=== PATIENT | male | born 1995 | race Caucasian/White ===

== ENCOUNTER 2017-05-15 15:23 | Inpatient (IN) | payer BC, OTHER ==
[~2017-05-15] VITALS: Ht 182.9 cm; Wt 67.1 kg
[~2017-05-15 15:23] MED LIST: DICY20TA28 PO; DIPH50CA37 PO; Gabapentin PO; HYDR-3895 PO; Ibuprofen PO; METH-33 PO
[2017-05-15 16:07] VITALS: BP 115/56
--- NOTE | 2017-05-15 16:08 | NUR ---
Intake assessment; Patient is a 21 year old male, presented to [facility] to detoxify from Opiates. Patient arrived at intake at approximately 1530. He is the primary source of information. Patient is admitted under the care of Dr. Renee. Patient appears anxious with flushed face. Admitting vital signs are as follows; BP 115/56, HR 73, Spo2 97% on room air, temperature 98.2 with respirations of 18. Educated patient regarding unit protocols and policies, verbalized understanding. will continue with further assessment when patient is up on the unit.
[2017-05-15] MEDS ORDERED: CLONIDINE HCL 0.1 MG TABLET PO PRN (17:15)
[2017-05-15] MEDS ORDERED: ONDANSETRON 4 MG/2 ML VIAL IM PRN (17:15)
[2017-05-15] MEDS ORDERED: DICYCLOMINE HCL 20 MG TABLET PO PRN (17:15)
[2017-05-15] MEDS ORDERED: ACETAMINOPHEN 325 MG TABLET PO PRN (17:15)
[2017-05-15] MEDS ORDERED: ONDANSETRON ODT 4 MG TAB.RAPDIS SL PRN (17:15)
[2017-05-15] MEDS ORDERED: BUPRENORPHINE HCL 2 MG TAB.SUBL SL PRN (17:15)
[2017-05-15] MEDS ORDERED: IBUPROFEN 600 MG TABLET PO PRN (17:15)
[2017-05-15] MEDS ORDERED: diphenhydrAMINE 50 MG CAPSULE PO PRN (17:15)
[2017-05-15] MEDS ORDERED: METHOCARBAMOL 750 MG TABLET PO PRN (17:15)
[2017-05-15] MEDS ORDERED: MIRALAX 17 GM POWD.PACK PO PRN (17:15)
[2017-05-15] MEDS ORDERED: LOPERAMIDE HCL 2 MG CAPSULE PO PRN ×2 (17:15)
[2017-05-15] MEDS ORDERED: MAG HYDROX/AL HYDROX/SIMETH 30 ML LIQUID UDC PO PRN (17:15)
--- NOTE | 2017-05-15 17:27 | NUR ---
Admission note; Patient is a 21 year old male, presented to [facility] to detoxify from Opiates. Patient arrived at intake at approximately 1530. He is the primary source of information. Patient is admitted under the care of Dr. Renee to room 314. Patient appears anxious with flushed face. Admitting vital signs are as follows; BP 115/56, HR 73, Spo2 97% on room air, temperature 98.2 with respirations of 18 with current COWS of 5. Educated patient regarding unit protocols and policies, verbalized understanding. Patient provided urine for urine drug screen. Discussed substance use history. Patient started smoking Heroin when he was 15 years old and progressed to daily use when he turned 18 y/o. At this rate patient uses 2-3 grams of heroin since November 2016, last used on 05/14/17 at 2300. Patient also reported using Marijuana 1 gram on a weekly basis, last used 05/14/17 at 2300. Patient reported that he used " a line" of cocaine 2 days ago but denies dependence to specific substance. Patient denies history of seizures and NKA. Discussed medical and psychiatric history. Patient reported history of anxiety and depression and insomnia. Patient does not have primary care physician but reported that his his psychiatrist is Dr. Cortes. Patient did not bring any home medications. Patient lives with his father. Skin check done, no significant findings noted. MD notified. Safety measures in place. Will continue to monitor patient.
[2017-05-15 17:56] LABS: *AMPHETAMINE, URINE NEGATIVE (NEGATIVE); *BARBITURATE, URINE NEGATIVE (NEGATIVE); *CANNABINOID, URINE POSITIVE (NEGATIVE); *COCCAINE, URINE POSITIVE (NEGATIVE); *OPIATE, URINE POSITIVE (NEGATIVE); *PHENCYCLIDINE SCREEN,URINE NEGATIVE (NEGATIVE)
--- NOTE | 2017-05-15 18:43 | NUR ---
End of shift note; Patient is AOX4. Patient was seen and evaluated by MD. Patient was placed on PRN medications at this time. Patient is on flal precaution. All safety measures secured. Met all needs.
--- NOTE | 2017-05-15 19:12 | NUR ---
Start of shift note Received report from day shift nurse. Pt is a 21 yo male, A+Ox4, presenting to [facility] for Opiate/Cocaine dependence. Pt has NKA, is on Full code status, and on Regular diet. Pt is on Fall precautions. Pt has HX of Anxiety, Depression, and insomnia. Pt is on 4 day Subutex taper to start tomorrow. No s/s of distress noted at this time. Respirations even and unlabored. Will continue to monitor.
[2017-05-15 20:12] VITALS: BP 102/62
[2017-05-15 20:45] LABS: BASOPHILS # (AUTO) 0.1 K/uL (0.0-8.0); BASOPHILS % (AUTO) 0.8 % (0.0-2.0); EOSINOPHILS # (AUTO) 0.3 K/uL (0.0-0.7); EOSINOPHILS % (AUTO) 4.2 % (0.0-7.0); HEMATOCRIT 40.5 % (40-50); HEMOGLOBIN 13.9 G/DL (14.0-18.0); LYMPHOCYTES # (AUTO) 3.3 K/UL (0.8-4.8); LYMPHOCYTES % (AUTO) 52.2 % (20.5-51.5); MEAN CORPUSCULAR HEMOGLOBIN 30.4 UUG (27.0-31.0); MEAN CORPUSCULAR HGB CONC 34 g/dL (32.0-37.0); MEAN CORPUSCULAR VOLUME 88.6 FL (82.0-92.0); MONOCYTES # (AUTO) 0.6 K/UL (0.1-1.30); MONOCYTES % (AUTO) 9.1 % (0.0-11.0); NEUTROPHILS # (AUTO) 2.1 K/UL (1.8-8.9); NEUTROPHILS % (AUTO) 33.7 % (38.5-71.5); PLATELET COUNT (AUTO) 218 K/UL (150-450); RED BLOOD CELL COUNT(AUTO) 4.57 MIL/UL (4.7-6.1); WHITE BLOOD COUNT (AUTO) 6.4 K/UL (4.0-11.2)
[2017-05-15] MEDS ORDERED: LORAZEPAM 1 MG TABLET PO ONE (21:00)
[2017-05-15 21:01] LABS: ALANINE AMINOTRANSFERASE 22 U/L (16-63); ALKALINE PHOSPHATASE 59 U/L (50-136); ASPARTATE AMINOTRANSFERASE 16 U/L (15-37); BILIRUBIN,TOTAL 0.3 mg/dL (0.2-1.0); CARBON DIOXIDE 34 mmol/L (21-32); CHLORIDE 106 mmol/L (98-107); GLUCOSE 109 mg/dL (74-106); POTASSIUM 3.7 mmol/L (3.5-5.1); TOTAL PROTEIN, SERUM 6.6 g/dL (6.4-8.2); UREA NITROGEN, BLOOD 10 mg/dL (7-18)
[2017-05-15] MEDS: GABAPENTIN 300 MG CAPSULE PO SCH (21:18)
[2017-05-15 21:29] LABS: ETHANOL < 3 MG/DL (0-0)
[2017-05-16 00:22] VITALS: BP 113/77
[2017-05-16] MEDS: LORAZEPAM 1 MG TABLET PO PRN ×2 (01:05→08:28)
--- NOTE | 2017-05-16 01:10 | NUR ---
PRN Ativan 2mg PT c/o anxiety and agitation and requested for PRN Ativan 2mg. Medication given and tolerated well. Will reassess within 1 HR. Will continue to monitor.
--- NOTE | 2017-05-16 02:05 | NUR ---
PRN Ativan 2mg Reassessment Medication effective. Pt expresses reduction in anxiety. No s/s of ASE/distress noted at this time. Respirations even and unlabored. Will continue to monitor.
[2017-05-16 04:25] VITALS: BP 117/74
--- NOTE | 2017-05-16 07:00 | NUR ---
End of shift note Pt is a 21 yo male, A+Ox4, presenting to [facility] for Opiate/Cocaine dependence. Pt has NKA, is on Full code status, and on Regular diet. Pt is on Fall precautions. Pt has HX of Anxiety, Depression, and insomnia. Pt is on 4 day Subutex taper to start today. Pt was given PRN Ativan 2mg @0110. Pt slept for a total of 4 HRS. Last COWS: 3 @0400. No s/s of distress noted at this time. Respirations even and unlabored. Will endorse to day shift nurse.
--- NOTE | 2017-05-16 07:30 | NUR ---
Start of shift note; Received report from night nurse. Patient is a 21 year old male admitted on 05/15/17 for Opiate dependence. Patient to start 4 day Subutex depending on COWS score. Patient reported history of anxiety, depression and insomnia. Patient has NKA, full code status on regular diet. Skin is intact. Patient is on fall precaution. Bed in lowest position, call light within reach. Will continue to monitor patient.
[2017-05-16 08:00] VITALS: BP 127/98
--- NOTE | 2017-05-16 08:10 | NUR ---
Subutex held; Patient's current COWS score is 7, Subutex dose held as per MD order (taper protocol). Will continue to monitor patient. Addendum: 05/16/17 at 1441 by CHAPARRITA KING LVN MD was notified.
[2017-05-16] MEDS: GABAPENTIN 300 MG CAPSULE PO SCH ×2 (08:28→20:16)
--- NOTE | 2017-05-16 08:28 | NUR ---
PRN medication; Patient appears to be agitated and increase in anxiety noted. Patient noted to be pacing back and forth in the room. BP of 127/98, HR 102. Educated patient regarding Relaxation techniques. Non pharmacological techniques ineffective. PRN Ativan 2mg PO given for agitation/anxiety as per MD order to be given with 24 hours post admission. Will closely monitor patient.
[2017-05-16] MEDS ORDERED: TUBERCULIN,PURIF.PROT.DERIV. 5 TU/0.1 ML TEST ID ONE (09:00)
[2017-05-16] MEDS ORDERED: BUPRENORPHINE HCL 2 MG TAB.SUBL SL SCH (09:00)
--- NOTE | 2017-05-16 09:28 | NUR ---
Re-assessment; Patient is calm and comfortable at this time. Patient's vital signs are within normal limits, BP 110/68, HR 72. PRN medication noted to be effective.
--- NOTE | 2017-05-16 10:29 | NUR ---
Therapist prompted client about group times. Client stated he would attend all groups today.
[2017-05-16] MEDS ORDERED: TRAZ-147 PO (10:36)
[2017-05-16 12:00] VITALS: BP 124/75
[2017-05-16] MEDS: BUPRENORPHINE HCL 2 MG TAB.SUBL SL SCH ×3 (12:01→20:17)
[2017-05-16 16:00] VITALS: BP 132/68
--- NOTE | 2017-05-16 18:23 | NUR ---
End of shift note; Patient is AOX4. Patient is a 21 year old male admitted on 05/15/17 for Opiate dependence. Patient was placed on 4 day Subutex taper, no adverse reactions noted. Patient reported history of anxiety, depression and insomnia. Patient has NKA, full code status on regular diet. Skin is intact. Patient is on fall precaution. Bed in lowest position, call light within reach. Patient remained compliant with treatment plan and medication regime. Medications were effective in reducing withdrawal symptoms. Met all needs.
[2017-05-16] MEDS: HYDROXYZINE PAMOATE 25 MG CAPSULE PO PRN (18:48)
--- NOTE | 2017-05-16 18:50 | NUR ---
PRN medication; Patient appears anxious, pacing back and forth in the Hallway. Non pharmacological relaxation techniques ineffective. PRN Vistaril 25mg PO given for anxiety. Will endorse to night nurse for re-assessment.
--- NOTE | 2017-05-16 19:30 | NUR ---
Start of shift note Received report from day shift nurse. Pt is a 21 yo male, admitted to [facility] for Opiate/Cocaine dependence on 05-15-17. Pt has NKA, is a Full code status, and on Regular diet. Pt is on Fall precautions. Pt has HX of Anxiety, Depression, and insomnia. Pt is on 4 day Subutex taper. Last COWS 8 at 1600. VSS. safety measures in place. Bed locked and in lowest position with 2 side rails up for safety. Will continue to monitor.
--- NOTE | 2017-05-16 19:50 | NUR ---
REASSESSMENT OF PATIENT Patient reassessed one hour after PRN Vistaril 25mg PO given for anxiety. Patient appears less anxious, in rec room, with no further c/o anxiety present.
[2017-05-16 20:00] VITALS: BP 115/64
[2017-05-16] MEDS: TRAZODONE 100 MG TABLET PO PRN (20:21)
--- NOTE | 2017-05-16 20:21 | NUR ---
PRN MEDICATION PATIENT RECEIVED TRAZODONE 300 MG PO FOR SLEEPLESSNESS/INSOMNIA. EFFECT PENDING
--- NOTE | 2017-05-16 21:30 | NUR ---
REASSESSMENT OF PATIENT PATIENT REASSESSED ONE HOUR AFTER PATIENT RECEIVED TRAZODONE 300 MG PO FOR SLEEPLESSNESS/INSOMNIA PATIENT RESTING COMFORTABLY IN BED. EFFECTIVENESS NOTED.
[2017-05-17] VITALS: BP 117/69
--- NOTE | 2017-05-17 | NUR ---
0000 COWS deferred for sleep
[2017-05-17 04:00] VITALS: BP 116/78
--- NOTE | 2017-05-17 04:00 | NUR ---
COWS DEFERRED FOR SLEEP
--- NOTE | 2017-05-17 06:51 | NUR ---
end of shift note Pt is a 21 yo male, admitted to [facility] for Opiate/Cocaine dependence on 05-15-17. Pt has NKA, is a Full code status, and on Regular diet. Pt is on Fall precautions. Pt has History of Anxiety, Depression, and insomnia. Pt is on 4 day Subutex taper. Vital signs at 2000 BP 115/64, P 85, R 16, SPO2 98% on RA, T 98.3 COWS 8. Trazodone 300 mg PO given for insomnia with good effect. Patient VS at 0000 BP 117/69, P 75, R 14, SPO2 98% on RA, T 97.8. COWS deferred for sleep. VS at 0400 BP 116/78, P 86, R 18, SPO2 99% on RA, T 98.6. COWS deferred for sleep. Patient slept a total of 8 hours. Intake 1105 ml output 2 voids, 1 BM. safety measures in place. Bed locked and in lowest position with 2 side rails up for safety. Report given to am nurse.
--- NOTE | 2017-05-17 07:15 | NUR ---
Start of Shift Notes: Received report from night nurse. Patient is in his room. Alert and verbally responsive. Oriented x 4. Able to make his needs known. Respirations even and unlabored. No SOB noted. Skin warm and moist to touch. Abdomen soft and non-distended. BS (+) in all 4 quadrants. No complains of N/V/D or constipation noted. Bladder non-distended. No complains of dysuria noted. Ambulatory ad alexandra with steady gait. Patient is 21 year old male admitted for heroin dependence. Prior to admission, patient was using 2-3 grams of heroin daily, 1 gram of marijuana and 1 line of cocaine. NKA. FULL CODE. Regular diet. Educated patient on the current plan of care for the day and the medication regimen. Encouraged oral fluid intake and encouraged group participation to learn new skills to prevent relapse. Will continue to monitor closely throughout the day.
--- NOTE | 2017-05-17 07:15 | NUR ---
Start of Shift Notes: Received report from night nurse. Patient is in his/her room. Alert and verbally responsive. Oriented x 4. Able to make his/her needs known. Respirations even and unlabored. No SOB noted. Skin warm and moist to touch. Abdomen soft and non-distended. BS (+) in all 4 quadrants. No complains of N/V/D or constipation noted. Bladder non-distended. No complains of dysuria noted. Ambulatory ad alexandra with steady gait. Patient is 21 year old male admitted for heroin dependence. Prior to admission, patient was using 2-3 grams of heroin daily, 1 gram of marijuana and 1 line of cocaine. NKA. FULL CODE. Regular diet. Educated patient on the current plan of care for the day and the medication regimen. Encouraged oral fluid intake and encouraged group participation to learn new skills to prevent relapse. Will continue to monitor closely throughout the day.
[2017-05-17 08:00] VITALS: BP 113/63
[2017-05-17] MEDS: GABAPENTIN 300 MG CAPSULE PO SCH ×2 (08:56→20:31)
[2017-05-17] MEDS ORDERED: BUPRENORPHINE HCL 2 MG TAB.SUBL SL SCH (09:00)
[2017-05-17 11:07] LABS: HEPATITIS B SURFACE AG Negative (Negative)
[2017-05-17 12:00] VITALS: BP 126/66
[2017-05-17] MEDS: BUPRENORPHINE HCL 2 MG TAB.SUBL SL SCH ×2 (14:03→20:31)
[2017-05-17] MEDS: HYDROXYZINE PAMOATE 25 MG CAPSULE PO PRN (14:08)
--- NOTE | 2017-05-17 14:08 | NUR ---
Vistaril 25 mg PO given: Patient complained of anxiety. VS stable. Non-pharmacological interventions provided but ineffective. Medicated patient with Vistaril 25 mg PO as ordered. Will monitor for effectiveness.
--- NOTE | 2017-05-17 15:08 | NUR ---
Re-assessment: Patient verbalize relief from Vistaril 25 mg to help in anxiety. Patient stated "I feel better now." PRN Vistaril 25 mg PO was given.
[2017-05-17 16:00] VITALS: BP 104/56
[2017-05-17] MEDS ORDERED: KETOROLAC TROMETHAMINE 30 MG INJ IM PRN (16:00)
--- NOTE | 2017-05-17 18:58 | NUR ---
End of Shift Notes: Patient continues to be on 4-day Subutex taper as ordered. No adverse reactions noted. Patient tolerating taper well. VS monitored closely. No significant abnormalities noted. Withdrawal symptoms were closely monitored. Initial COWS 7, patient presented with sneezing, anxiety, fine tremors, restlessness and myalgia. Medicated patient with Vistaril 25 mg PO at 1408 with help after 1 hour. Last COWS 4. Per patient, Subutex has been effective in reducing patient's withdrawal symptoms. Able to participate in group and activities. Compliant with care and treatment. All needs met and attended. Will continue to monitor closely.
[2017-05-17 20:00] VITALS: BP 135/75
--- NOTE | 2017-05-17 20:00 | NUR ---
Start of Shift Pt is a 21 year old male admitted for Opiate dependence, placed on 4 day Subutex taper. Pt reported using Heroin 2-3g/daily, marijuana 1g/weeks and cocaine "1 line only", one time 2 days prior to admission. PMH: anxiety, depression, insomnia. NKA, regular diet, fall precautions and full code. Upon assessment, pt reports feeling mildly anxious, reports muscle/joint aches, nose stuffy, skin flushed/clammy, respirations even/unlabored, denies n/v/d, denies SOB/chest pain, medications due. Safety measures in place, call light within reach, side rails up x2, bed locked and in low position. Will continue to monitor.
[2017-05-17] MEDS: BACLOFEN 10 MG TABLET PO SCH (20:30)
[2017-05-17] MEDS: CLONIDINE HCL 0.1 MG TABLET PO SCH (20:30)
[2017-05-17] MEDS: TRAZODONE 100 MG TABLET PO PRN (22:47)
--- NOTE | 2017-05-17 22:47 | NUR ---
PRN Administration Pt requests aid for sleep. Trazodone 300mg PRN administered. Safety measures in place, will continue to monitor.
--- NOTE | 2017-05-17 23:47 | NUR ---
PRN Reassessment Upon reassessment, pt is in bed, resting with eyes closed, respirations even/unlabored. Safety measures in place, will continue to monitor.
[2017-05-18] VITALS: BP 107/62
[2017-05-18 04:00] VITALS: BP 110/73
--- NOTE | 2017-05-18 04:00 | NUR ---
COWS deferred due to pt sleeping, to assess while pt is awake as ordered. BP 110/73, pulse 80, SpO2 100% room air, resp 17, temp 98, no pain 0/[address], will continue to monitor.
--- NOTE | 2017-05-18 07:00 | NUR ---
End of Shift Pt is a 21 year old male admitted for Opiate dependence, placed on 4 day Subutex taper. Pt reported using Heroin 2-3g/daily, marijuana 1g/weeks and cocaine "1 line only", one time 2 days prior to admission. PMH: anxiety, depression, insomnia. NKA, regular diet, fall precautions and full code. During shift, pt reported feeling mildly anxious, reported muscle/joint aches, nose stuffy, skin flushed/clammy - scheduled taper medications administered, effective in management of s/s of withdrawal, as reported per pt, CIWA 6 decreased to CIWA 4. Trazodone 300mg PRN administered for sleep, effective. Pt slept for 6 hours, intake of 1541 ml PO, voids x5 and stool x1. Safety measures in place, call light within reach, side rails up x2, bed locked and in low position. Endorsed to day shift nurse.
--- NOTE | 2017-05-18 07:01 | NUR ---
Start of Shift Notes: Received report from night nurse. Patient is in his/her room. Alert and verbally responsive. Oriented x 4. Able to make his/her needs known. Respirations even and unlabored. No SOB noted. Skin warm and moist to touch. Abdomen soft and non-distended. BS (+) in all 4 quadrants. No complains of N/V/D or constipation noted. Bladder non-distended. No complains of dysuria noted. Ambulatory ad alexandra with steady gait. Patient is 21 year old male admitted for heroin dependence. Prior to admission, patient was using 2-3 grams of heroin daily, 1 gram of marijuana and 1 line of cocaine. NKA. FULL CODE. Regular diet. Educated patient on the current plan of care for the day and the medication regimen. Encouraged oral fluid intake and encouraged group participation to learn new skills to prevent relapse. Will continue to monitor closely throughout the day. Addendum: 05/18/17 at 1037 by RON ESCUDERO LVN ERROR IN CHARTING
[2017-05-18 08:00] VITALS: BP 93/64
[2017-05-18] MEDS: BACLOFEN 10 MG TABLET PO SCH ×3 (08:46→21:24)
[2017-05-18] MEDS: GABAPENTIN 300 MG CAPSULE PO SCH ×3 (08:46→21:24)
[2017-05-18] MEDS: BUPRENORPHINE HCL 2 MG TAB.SUBL SL SCH ×3 (08:46→21:24)
[2017-05-18] MEDS: CLONIDINE HCL 0.1 MG TABLET PO SCH ×2 (09:00→21:24)
--- NOTE | 2017-05-18 09:48 | NUR ---
Clonidine 0.1mg PO not administered: Patient's blood pressure 93/64. Pulse 64. Denies any complains of headache, dizziness or lightheadedness. Clonidine 0.1mg PO held at this time.
[2017-05-18 12:00] VITALS: BP 105/65
[2017-05-18 16:00] VITALS: BP 132/80
--- NOTE | 2017-05-18 18:49 | NUR ---
End of Shift Notes: Patient continues to be on 4-day Subtuex taper as ordered. No adverse reactions. VS monitored closely. No significant abnormalities noted. Withdrawal symptoms were closely monitored. Initial COWS 4, patient presented with muscle aches, myalgia, and anxiety. Last COWS 2. Per patient, Subutex has been effective in reducing his withdrawal symptoms. Compliant with care and treatment. All needs met and attended. Will continue to monitor closely.
--- NOTE | 2017-05-18 19:12 | NUR ---
Start of shift note Received report from day shift nurse. Pt is a 21 yo male, A+Ox4, presenting to [facility] for Opiate/Cocaine dependence. Pt has NKA, is on Full code status, and on Regular diet. Pt is in Fall precautions. Pt has HX of Anxiety, depression, and insomnia. Pt is on 4 day Subutex taper, tolerated well. No s/s of distress noted at this time. Respirations even and unlabored. Will continue to monitor.
[2017-05-18 20:11] VITALS: BP 126/74
[2017-05-18] MEDS: HYDROXYZINE PAMOATE 25 MG CAPSULE PO PRN (23:01)
--- NOTE | 2017-05-18 23:02 | NUR ---
PRN Vistaril Pt c/o anxiety and requested for PRN Vistaril. Medication given and tolerated well. Will reassess within 1 HR. Will continue to monitor.
--- NOTE | 2017-05-19 00:02 | NUR ---
PRN Vistaril Reassessment Medication effective. Pt expresses reduction in anxiety. No s/s of ASE/distress noted at this time. Respirations even and unlabored. Will continue to monitor.
[2017-05-19 00:15] VITALS: BP 119/65
--- NOTE | 2017-05-19 03:54 | NUR ---
PRN Robaxin Pt c/o muscle spasms and requested for PRN Robaxin. Medication given and tolerated well. Will reassess within 1 HR. Will continue to monitor.
[2017-05-19 04:12] VITALS: BP 121/68
--- NOTE | 2017-05-19 04:50 | NUR ---
PRN Robaxin Reassessment Medication effective. Pt is resting well in bed. No s/s of ASE/distress noted at this time. Respirations even and unlabored. Will continue to monitor.
--- NOTE | 2017-05-19 07:00 | NUR ---
End of shift note Pt is a 21 yo male, A+Ox4, presenting to [facility] for Opiate/Cocaine dependence. Pt has NKA, is on Full code status, and on Regular diet. Pt is in Fall precautions. Pt has HX of Anxiety, depression, and insomnia. Pt is on 4 day Subutex taper, tolerated well. Pt was given PRN Vistaril @2302 and PRN Robaxin @0354. Pt slept for a total of 2 HRS. Last COWS: 2 @0400. No s/s of distress noted at this time. Respirations even and unlabored. Will endorse to day shift nurse.
--- NOTE | 2017-05-19 07:30 | NUR ---
START OF SHIFT Pt 21 y/o male admitted for opiate dependence. Pt received in room on bed with eyes closed resting, but easily arousable to name. Pt alert and oriented to name, place, and time. Perrla. Skin warm and slightly moist to touch. Respirations even and unlabored. Pt states feels slightly anxious this morning. It was reported that pt slept for 2 hours last night. Bed on lowest position position with side rails x2 up for safety. Call light within reach. No distress noted at this time.
[2017-05-19] MEDS: GABAPENTIN 300 MG CAPSULE PO SCH ×3 (08:21→22:31)
[2017-05-19] MEDS: BACLOFEN 10 MG TABLET PO SCH ×3 (08:21→22:31)
[2017-05-19] MEDS: CLONIDINE HCL 0.1 MG TABLET PO SCH ×2 (08:22→22:31)
[2017-05-19 08:24] VITALS: BP 106/62
[2017-05-19] MEDS ORDERED: BUPRENORPHINE HCL 2 MG TAB.SUBL SL SCH (09:00)
[2017-05-19 12:35] VITALS: BP 99/58
[2017-05-19] MEDS: HYDROXYZINE PAMOATE 25 MG CAPSULE PO PRN (14:23)
--- NOTE | 2017-05-19 14:25 | NUR ---
PRN Pt states feels anxious. Vistaril po prn per MD order given and tolerated well.
--- NOTE | 2017-05-19 15:25 | NUR ---
PRN JORGE Pt observed sitting in group activity.
[2017-05-19 17:32] VITALS: BP 130/65
--- NOTE | 2017-05-19 18:42 | NUR ---
END OF SHIFT Pt 21 y/o male admitted for opiate dependence. Pt alert and oriented to name, place, and time. Perrla. Skin warm and dry to touch. Respirations even and unlabored. Pt observed mostly in recreation room today. Pt attended group activity. Pt was seen by MD today. Pt medication compliant and tolerated well. No ASE noted. Pt is scheduled to be discharged tomorrow. Bed on lowest position with side rails x2 up for safety. Call light within reach. No distress noted at this time.
--- NOTE | 2017-05-19 19:30 | NUR ---
START OF SHIFT Pt 21 y/o male admitted for opiate dependence. Pt is A/A /O X 4.Skin warm and dry to touch. Respirations even and unlabored. Per day shift report,Pt observed mostly in recreation room today. Pt attended group activity. Pt has completed his taper and is scheduled to be discharged tomorrow.Pt is med compliant,all safety measures in place, bed lcoked in lowest position with side rails x2 up for safety. Call light within reach. No c/o pain or distress noted.Last COWS=2,will continue to monitor.
[2017-05-19] MEDS ORDERED: GABA-534 PO (19:34)
[2017-05-19] MEDS ORDERED: CLON0.1T14 PO (19:34)
[2017-05-19] MEDS ORDERED: IBUP-1955 PO (19:34)
[2017-05-19] MEDS ORDERED: DICY20TA28 PO (19:34)
[2017-05-19] MEDS ORDERED: METH-406 PO (19:34)
[2017-05-19] MEDS ORDERED: HYDR-3895 PO (19:34)
[2017-05-19 20:00] VITALS: BP 127/65
[2017-05-19] MEDS: TRAZODONE 100 MG TABLET PO PRN (22:32)
--- NOTE | 2017-05-19 22:35 | NUR ---
PRN TRAZODONE GIVEN ORDERED FOR C/O INSOMNIA PER PT REQUEST.WILL MONITOR. PT REQUESTED NOT TO BE WOKEN UP FOR V/S IF HE IS SLEEPING.
--- NOTE | 2017-05-19 23:35 | NUR ---
PRN F/U PT SEEN RESTING IN BED WITH EYES CLOSED,IN DEEP SLEEP.NO S/S OF DISTRESS NOTED.
--- NOTE | 2017-05-20 | NUR ---
V/S REFUSED/COWS DEFERRED V/S REFUSED/COWS DEFERRED DUE TO SLEEP.PT SEEN RESTING IN BED,IN DEEP SLEEP.BREATHING IS EVEN AND NON LABORED.NO S/S OF DISTRESS NOTED.WILL CONTINUE TO MONITOR.
--- NOTE | 2017-05-20 06:39 | NUR ---
END OF SHIFT Pt is 21 y/o male admitted for opiate dependence. Pt is A/A /O X 4.Skin warm and dry to touch. Respirations even and unlabored. Pt has completed his taper and is scheduled to be discharged today.PRN Trazodone was given for insomnia with good effect;pt slept 7 hrs,fluid intake was 980 mls,voided x 3 .Pt is med compliant,all safety measures in place, bed locked in lowest position with side rails x2 up for safety. Call light within reach. No c/o pain or distress noted.Last COWS=2,will continue to monitor.
--- NOTE | 2017-05-20 07:10 | NUR ---
Start of Shift Endorsement received from nightshift nurse. Pt is a 21 y/o male admitted for Heroin and Cocaine dependence. Pt has been placed on a 4 day Subutex taper. Pt has completed the taper and has been scheduled to be discharged today. PT is mildly withdrawing AEB COWS 2 at midnight. Pt reports sleeping 7 hours and feel rested and ready to be discharged. Pt reports sleeping 7 hours. Pt received PRN Trazodone. VS WNL. Full Code. PT is alert and oriented x4. Pt is in STABLE condition at this time. Remains compliant with medication and diet regimen. All needs have been met, All safety measures in place per hospital policy. Bed in lowest position, side rails up x2, call-light within reach. Will continue to monitor
[2017-05-20 08:00] VITALS: BP 115/68
[2017-05-20 08:25] VITALS: BP 115/68
[2017-05-20] MEDS: CLONIDINE HCL 0.1 MG TABLET PO SCH (08:25)
[2017-05-20] MEDS: GABAPENTIN 300 MG CAPSULE PO SCH (08:26)
[2017-05-20] MEDS: BACLOFEN 10 MG TABLET PO SCH (08:26)
--- NOTE | 2017-05-20 09:45 | NUR ---
Discharge note PT has been discharged from [facility] PT is in Stable condition, VS WNL. Denies suicidal and homicidal ideations at this time. . All documentation has been completed, paperwork signed and dated. Pt left with all of his belongings, medications and prescriptions. Pt has been discharged from [facility] on 05/20/17 at 0945. has been Notified.
== END 2017-05-20 09:40 | DRG 895 ==
LOC: SRC 15:40
PROVIDERS: ADMIT Internal Medicine; ATTEND Internal Medicine
PROC: HZ2ZZZZ Detoxification Services for Substance Abuse Treatment (ICD-10-PCS; principal; 2017-05-15)
PROC: HZ31ZZZ Individual Counseling for Substance Abuse Treatment, Behavioral (ICD-10-PCS; 2017-05-16)
PROC: HZ41ZZZ Group Counseling for Substance Abuse Treatment, Behavioral (ICD-10-PCS; 2017-05-17)
DX: F11.23 Opioid dependence with withdrawal (principal); E87.3 Alkalosis; F14.20 Cocaine dependence, uncomplicated; F12.90 Cannabis use, unspecified, uncomplicated; F17.210 Nicotine dependence, cigarettes, uncomplicated; G47.00 Insomnia, unspecified; Z91.89 Other specified personal risk factors, not elsewhere classified; Z81.1 Family history of alcohol abuse and dependence; D64.9 Anemia, unspecified; E86.0 Dehydration; R73.9 Hyperglycemia, unspecified
CPT/HCPCS: 36415; 70030-TC; 80307; 80349; 80353; 80361; 83735; 85025; 86580; 86592; 86705; 86803; 87340; 87806; G0480

== ENCOUNTER 2017-08-20 13:19 | Inpatient (IN) | payer BC, OTHER ==
[~2017-08-20] VITALS: Ht 182.9 cm; Wt 64.0 kg
[~2017-08-20 13:19] MED LIST changes: +CLON0.1T14 PO; -DIPH50CA37 PO; +GABA-534 PO; -Gabapentin PO; +IBUP-1955 PO; -Ibuprofen PO; -METH-33 PO; +METH-406 PO; +TRAZ-147 PO
--- NOTE | 2017-08-20 14:40 | NUR ---
Pre-Admission Assessment Body Stylist asked to assess pt [facility]. Pt is calm and cooperative, makes needs known. Pt A/O x4, clear thought and speech process. Full range of emotions with a congruent mood. Pt is appropriate with responses. Pt endorses a need to get medical detoxification due to abusing Heroin. Pt endorses using 2-3 grams/daily by smoking. Pt also endorses smoking marijuana daily. Had been abusing crack, but has not used it 3 weeks. VS stable, initial COWS of 4. Pt endorses NKDA, eats a regular doet and if full code. Pt endorses a PCP of Dr. Ward of [place]. Pt denies HI/SI or A/VH. Pt is appropriate for [facility] and will be admitted to the unit per Dr. Lee admit orders.
[2017-08-20] MEDS ORDERED: DICYCLOMINE HCL 20 MG TABLET PO PRN (15:00)
[2017-08-20] MEDS ORDERED: diphenhydrAMINE 50 MG CAPSULE PO PRN (15:00)
[2017-08-20] MEDS ORDERED: ONDANSETRON 4 MG/2 ML VIAL IM PRN (15:00)
[2017-08-20] MEDS ORDERED: MAG HYDROX/AL HYDROX/SIMETH 30 ML LIQUID UDC PO PRN (15:00)
[2017-08-20] MEDS ORDERED: ONDANSETRON ODT 4 MG TAB.RAPDIS SL PRN (15:00)
[2017-08-20] MEDS ORDERED: LOPERAMIDE HCL 2 MG CAPSULE PO PRN ×2 (15:00)
[2017-08-20] MEDS ORDERED: ACETAMINOPHEN 325 MG TABLET PO PRN (15:00)
[2017-08-20] MEDS ORDERED: IBUPROFEN 600 MG TABLET PO PRN (15:00)
[2017-08-20 16:29] LABS: *AMPHETAMINE, URINE NEGATIVE (NEGATIVE); *BARBITURATE, URINE NEGATIVE (NEGATIVE); *CANNABINOID, URINE POSITIVE (NEGATIVE); *COCCAINE, URINE NEGATIVE (NEGATIVE); *OPIATE, URINE POSITIVE (NEGATIVE); *PHENCYCLIDINE SCREEN,URINE NEGATIVE (NEGATIVE)
[2017-08-20] MEDS: METHOCARBAMOL 750 MG TABLET PO PRN (16:41)
[2017-08-20] MEDS: LORAZEPAM 1 MG TABLET PO PRN ×2 (16:42→21:10)
[2017-08-20] MEDS: CLONIDINE HCL 0.1 MG TABLET PO PRN (16:42)
--- NOTE | 2017-08-20 16:42 | NUR ---
ORIN Coleaxin - Bentyl - Clonidine - Ativan Pt is calm and cooperative and has good insight into withdrawal process, having been to detoxification facilities, as well as, going cold turkey himself. Pt does not want to start on Subutex and states, " I don't feel to bad, not bad enough for the Subutex." Pt complains of mild stomach cramps, mild muscle aches, chills, anxiety and states, " I am a bit grumpy, on edge." Sharepoint Consultant and pt concur to administer medication to treat pt's symptoms and hold off on any Subutex till later. Sharepoint Consultant administered medications per MD order and policy with pt tolerating well. Will continue to monitor, support and encourage according to plan of care.
--- NOTE | 2017-08-20 16:56 | NUR ---
Admission (145) Pt admitted to [facility] for Heroin detoxification, on the unit 1456, safety/skin check done with skin intact and no contraband noted. Pt has completed the admit process, to include, unit orientation to rules, regulations and guidelines. Educated on common medications, smoking cessation and the withdrawal process. Pt has completed signing all necessary paperwork and denies any further comments, questions or concerns. Pt has been to [facility] on 2 previous occasions and is familiar with the unit and the detoxification process. Pt has been to 3 RTC, the last being [facility] in [place], [place] in 08/2016. Pts longest sobriety is 11 months, in 2012. Pt lives with his dad in [place]. Pt works for the [employer] business and has since age 14. Denies any medical history, denies psychiatric history, denies surgeries. Pts initial COWS of 4, with no complaints from pt. Pt denies HI/SI or A/VH or any associated psychiatric symptoms. Pt currently socializing with peers, bright affect with congruent mood. Comfortable and open with staff. Will continue to monitor, support and encourage according to plan of care.
[2017-08-20 17:05] VITALS: BP 123/67
--- NOTE | 2017-08-20 17:56 | NUR ---
PRN Re-Assessment Pt is comfortable on the unit, social and bright. Pt endorses minor relief, stating, " I am feeling about the same, but that's good, right?" Pt believes he is starting to withdrawn and is accepting of the process. Will continue to monitor, support and encourage according to plan of care.
--- NOTE | 2017-08-20 18:55 | NUR ---
End of Shift Occasional Caregiver provided report on pt admitted to [facility] this afternoon with pt on the unit at 1456. Pt is a 22 year old male admitted for Heroin detoxification. Pt has been to [facility] on two other occasions. Pt reports NKDA, no medical history, no history of seizures and no psychiatric history. Pt denies HI/SI and A/VH. Makes needs known and is calm and cooperative. Last Cows 6. Will start Subutex taper tomorrow morning. Experiencing minor withdrawal symptoms, treated per symptom. PRN Ativan, Robaxin, Clonidine and Bentyl administered PRN. Bed in low position, wheels locked and side rails up x2. Will continue to monitor, support and encourage according to plan of care.
--- NOTE | 2017-08-20 19:30 | NUR ---
START OF SHIFT Received 22 year old male patient. Pt is alert and oriented x4. Pt noted to be anxious, agitated, and fidgety. He is scheduled to start a 4 day Subutex taper tomorrow 08/21/18. Per endorsement, he received PRN clonidine, Bentyl, Ativan and Robaxin. Breathing is even and unlabored. Safety measures in place. Will monitor.
[2017-08-20 20:00] VITALS: BP 115/60
--- NOTE | 2017-08-20 21:00 | NUR ---
RN note Trazodone one-time order Patient verbalized that he takes Trazodone [address] Valencia made aware and he ordered one-time Trazodone 300 mg PO. Carried out. Addendum: 08/20/17 at 2306 by ARIELA BATES RN Additional information: Trazodone indicated for sleep and depression
--- NOTE | 2017-08-20 21:10 | NUR ---
PRN ATIVAN Pt complains of agitation. Pt noted to be restless/agitated and continuously goes down to smoke. PRN Ativan administered as ordered. Will monitor effectiveness.
[2017-08-20] MEDS ORDERED: TRAZODONE 100 MG TABLET PO ONE (22:00)
--- NOTE | 2017-08-20 22:10 | NUR ---
PRN ATIVAN REASSESSMENT PRN medication effective. Pt noted to be more calm and less anxious. Pt reports he feels less agitated. Breathing is even and unlabored. Safety measures in place. Will continue to monitor.
--- NOTE | 2017-08-20 23:02 | NUR ---
REFUSED LABS Pt refused labs to be drawn. Explained to pt that labs will be drawn again tomorrow at 0600. Pt verbalized understanding and reported he prefers to have it done tomorrow morning.
--- NOTE | 2017-08-20 23:03 | NUR ---
ONE TIME TRAZODONE Pt with new order for one time Trazodone for sleep. Medication administered as ordered. Will monitor effectiveness.
[2017-08-21] VITALS: BP 125/65
--- NOTE | 2017-08-21 00:03 | NUR ---
TRAZODONE REASSESSMENT Medication ineffective. Pt still awake, reports he is drowsy and will try to sleep soon. Safety measures in place. Will continue to monitor.
--- NOTE | 2017-08-21 00:20 | NUR ---
NURSING NOTE Pt complains of anxiety, agitation, body aches, sweats, chills and restlessness. COWS:13. Offered pt PRN Subutex, pt refused to take mediation at this time. Pt reports he will be ready to take Subutex in an hour or two. Will monitor pt.
[2017-08-21] MEDS: LORAZEPAM 1 MG TABLET PO PRN ×3 (02:12→22:14)
--- NOTE | 2017-08-21 02:12 | NUR ---
PRN ATIVAN/SUBUTEX Pt complains of anxiety, agitation, restlessness, chills, sweats and abdominal cramps. Pt noted with red, teary eyes, and fidgety behavior. Pt noted to go down to smoke several times. COWS:14. PRN Ativan and Subutex administered as ordered. Safety measures in place. Will continue to monitor.
[2017-08-21] MEDS: BUPRENORPHINE HCL 2 MG TAB.SUBL SL PRN ×2 (02:13→10:02)
--- NOTE | 2017-08-21 03:12 | NUR ---
PRN REASSESSMENT PRN medications effective. Pt appears more calm, and less fidgety. Pt reports body aches and chills have decreased. Pt stated " I feel a lot better" COWS:8. Breathing is even and unlabored, safety measures in place. Will continue to monitor.
--- NOTE | 2017-08-21 04:00 | NUR ---
VITALS REFUSED, COWS DEFERRED 0400 vitals refused. Pt reports difficulty sleeping and prefers not to be woken up for vitals signs if asleep. COWS deferred d/t pt lying in bed with eyes closed and is sleeping. Breathing is even and unlabored, safety measures in place. Will monitor.
--- NOTE | 2017-08-21 07:20 | NUR ---
END OF SHIFT Pt is a 22 year old male patient. Pt remains alert and oriented x4. Pt had complaints of chills, sweats, anxiety, restlessness, and agitation. He went down to smoke multiple times throughout the night. At 0212 he received PRN Ativan and Subutex for agitation and COWS:14. He slept a total of 2 hrs, Intake: 1,150mL, Void: x1, BM:0, COWS:8. Breathing is even and unlabored. Safety measures in place. Endorsed to AM shift.
[2017-08-21 07:38] LABS: BASOPHILS # (AUTO) 0.1 K/uL (0.0-8.0); BASOPHILS % (AUTO) 1.1 % (0.0-2.0); EOSINOPHILS # (AUTO) 0.4 K/uL (0.0-0.7); EOSINOPHILS % (AUTO) 5.4 % (0.0-7.0); HEMATOCRIT 40.7 % (36.7-47.1); HEMOGLOBIN 13.9 g/dL (12.5-16.3); LYMPHOCYTES # (AUTO) 4.5 K/uL (20.0-40.0); LYMPHOCYTES % (AUTO) 56.3 % (20.5-51.5); MEAN CORPUSCULAR HEMOGLOBIN 30.4 uug (23.8-33.4); MEAN CORPUSCULAR HGB CONC 34 g/dL (32.5-36.3); MEAN CORPUSCULAR VOLUME 89.2 fL (73.0-96.2); MONOCYTES # (AUTO) 0.8 K/uL (2.0-10.0); MONOCYTES % (AUTO) 9.9 % (0.0-11.0); NEUTROPHILS # (AUTO) 2.2 K/uL (1.8-8.9); NEUTROPHILS % (AUTO) 27.3 % (38.5-71.5); PLATELET COUNT (AUTO) 196 K/uL (152-348); RED BLOOD CELL COUNT(AUTO) 4.57 MIL/uL (4.06-5.63); WHITE BLOOD COUNT (AUTO) 7.9 K/uL (3.6-10.2)
[2017-08-21 07:43] LABS: ETHANOL < 3 MG/DL (0-0)
--- NOTE | 2017-08-21 07:43 | NUR ---
Start of shift note; Received report from night nurse. Patient is a 22 year old male admitted on 08/20/17 for Opiate withdrawals. Patient's last COWS score is 8 per endorsement. Patient is AOX4 complaining of muscle aches, restlessness, tremors to touch. Educated patient regarding the importance of compliance to treatment and medication regime. Encouraged patient to participate in group therapy and activities. Encouraged adequate fluid and nutritional intake. All safety measures secured. Will continue to monitor patient.
[2017-08-21 07:48] LABS: ALANINE AMINOTRANSFERASE 21 U/L (16-63); ALKALINE PHOSPHATASE 63 U/L (50-136); ASPARTATE AMINOTRANSFERASE 17 U/L (15-37); BILIRUBIN,TOTAL 0.3 mg/dL (0.2-1.0); CARBON DIOXIDE 31 mmol/L (21-32); CHLORIDE 105 mmol/L (98-107); GLUCOSE 112 mg/dL (74-106); MAGNESIUM 2.1 mg/dL (1.8-2.4); POTASSIUM 4.3 mmol/L (3.5-5.1); TOTAL PROTEIN, SERUM 6.7 g/dL (6.4-8.2); UREA NITROGEN, BLOOD 13 mg/dL (7-18)
[2017-08-21 08:00] VITALS: BP 104/67
[2017-08-21] MEDS: BUPRENORPHINE HCL 2 MG TAB.SUBL SL SCH ×3 (08:38→20:59)
--- NOTE | 2017-08-21 08:40 | NUR ---
Medication held; Patient's current COWS score is 7 manifested by chills, muscle aches, stomach cramps, yawning, HR 85, patient did not qualify yet to initiate Subutex taper. Subutex held per protocol .
[2017-08-21] MEDS ORDERED: TUBERCULIN,PURIF.PROT.DERIV. 5 TU/0.1 ML TEST ID ONE (09:00)
--- NOTE | 2017-08-21 10:02 | NUR ---
PRN Medication; Patient is AOX4, complaining of muscle aches, diaphoresis, agitation, anxiety, stomach cramps, tremors to touch, unable to sit still with current COWS score of 12. PRN Subutex 4mg SL given to help reduce withdrawal symptoms. Will continue to monitor for effectiveness of medication.
--- NOTE | 2017-08-21 10:32 | NUR ---
Re-assessment; Patient is AOX4. Patient current COWS score is 10 manifested by diaphoresis, anxiety, agitation, muscle aches, tremors to touch. PRN Subutex noted to be effective.
--- NOTE | 2017-08-21 11:19 | NUR ---
PRN medication; Patient appears very anxious and agitated pacing back and forth in the hallway, unable to sit still. Redirected patient as needed. PRN Ativan 2mg PO PRN administered per MD order for agitation and s/s of withdrawals. Will continue to monitor patient for effectiveness of medication.
[2017-08-21 12:00] VITALS: BP 106/68
--- NOTE | 2017-08-21 12:19 | NUR ---
Re-assessment; Patient is AOX4, appears calm and comfortable. PRN medication noted to be effective.
[2017-08-21 13:38] LABS: BAND % (MANUAL) 4 % (0-10); BASOPHILS % (MANUAL) 1 % (0-2); EOSINOPHILS % (MANUAL) 6 % (0-8); LYMPHOCYTES % (MANUAL) 56 % (20-40); MONOCYTES % (MANUAL) 11 % (2-10); NEUTROPHILS % (MANUAL) 22 % (42-75)
[2017-08-21] MEDS: GABAPENTIN 300 MG CAPSULE PO SCH ×2 (14:34→20:59)
[2017-08-21] MEDS ORDERED: DOCUSATE SODIUM 250 MG CAPSULE PO PRN (15:15)
[2017-08-21 16:00] VITALS: BP 119/77
[2017-08-21] MEDS: HYDROXYZINE PAMOATE 25 MG CAPSULE PO PRN (18:18)
--- NOTE | 2017-08-21 18:22 | NUR ---
PRN medication; Patient is AOX4. Patient appears anxious, pacing back and forth in the room. PRN Vistaril 25mg PO given for anxiety. Will continue to monitor patient.
--- NOTE | 2017-08-21 18:33 | NUR ---
End of shift note; Patient is AOX4. Patient remained compliant with treatment plan and medication regime. Medications were effective in reducing withdrawal symptoms. Patient received PRN Ativan, and Vistaril for anxiety, noted to be effective. Patient's last COWS is 7. Patient participated in group activities and therapies. All safety measures secured. Met all needs.
--- NOTE | 2017-08-21 19:10 | NUR ---
Re-assessment; Patient appears calm and comfortable. PRN medication noted to be effective.
--- NOTE | 2017-08-21 19:30 | NUR ---
START OF SHIFT Received 22 year old male patient. Pt is alert and oriented x4. Pt noted to be anxious,fidgety, and restless. Per endorsement, he received PRN Vistaril and Ativan. He also received a new order for Seroquel for sleep. Breathing is even and unlabored. Safety measures in place. Will continue to monitor.
[2017-08-21 20:15] VITALS: BP 121/71
[2017-08-21] MEDS: QUETIAPINE FUMARATE 200 MG TABLET PO SCH (22:14)
--- NOTE | 2017-08-21 22:14 | NUR ---
PRN ATIVAN Pt complains of anxiety/restlessness. Pt noted to be agitated and seen walking back and forth from his room to the recreation room. Pt also noted to smoke multiple times. PRN Ativan administered as ordered. Will monitor effectiveness.
--- NOTE | 2017-08-21 23:14 | NUR ---
PRN REASSESSMENT PRN Ativan effective. Pt lying in bed with eyes closed noted to be asleep. Breathing is even and unlabored. Safety measures in place. Will continue to monitor.
[2017-08-22] VITALS: BP 118/66
[2017-08-22] MEDS: CLONIDINE HCL 0.1 MG TABLET PO PRN (00:56)
--- NOTE | 2017-08-22 00:56 | NUR ---
PRN CLONIDINE/VISTARIL Pt noted to be anxious, and restless and continues to go down to smoke. He complains of agitation and diaphoresis. PRN Clonidine and Vistaril administered as ordered. Safety measures in place. Will monitor effectiveness.
[2017-08-22] MEDS: HYDROXYZINE PAMOATE 25 MG CAPSULE PO PRN (00:57)
--- NOTE | 2017-08-22 01:56 | NUR ---
PRN REASSESSMENT PRN medications effective. Pt is lying in bed with eyes closed noted to be asleep. Safety measures in place. Will continue to monitor.
--- NOTE | 2017-08-22 04:00 | NUR ---
VITALS REFUSED/ COWS DEFERRED 0400 vitals refused. Pt reports difficulty sleeping and did not want to be woken up. COWS deferred. Pt lying in bed with eyes closed noted to be asleep. Breathing is even and unlabored. Safety measures in place. Will monitor.
--- NOTE | 2017-08-22 07:02 | NUR ---
END OF SHIFT Pt is a 22 year old male patient. Pt remains alert and oriented x4. Pt was noted to be anxious, restless and agitated during the shift. He went to smoke multiple times throughout the night. Seroquel was effective for him. He was able to sleep 5 hrs, Intake: 1960mL, Void: x3, BM:x1, COWS:9, CIWA:10. He received PRN Ativan, Clonidine and Vistaril. Breathing is even and unlabored. Safety measures in place. Endorsed to AM shift.
--- NOTE | 2017-08-22 07:46 | NUR ---
Start of shift note; Received report from night nurse. Patient is a 22 year old male admitted on 08/20/17 for Opiate withdrawals. Patient is AOX4 complaining of muscle aches, restlessness, tremors to touch, diaphoresis, anxiety, agitation, stomach cramps, unable to sit still, redirected as needed. Educated patient regarding the importance of compliance to treatment and medication regime. Encouraged patient to participate in group therapy and activities. Encouraged adequate fluid and nutritional intake. All safety measures secured. Will continue to monitor patient.
[2017-08-22 08:00] VITALS: BP 106/68
--- NOTE | 2017-08-22 08:01 | NUR ---
PRN medication; Patient appears very anxious, restless and agitated , unable to sit still. Patient's current COWS score is 10. PRN Ativan 2mg PO PRN given for s/s of withdrawals and agitation per MD order. Will continue to monitor for effectiveness of medication.
[2017-08-22] MEDS: GABAPENTIN 300 MG CAPSULE PO SCH ×2 (08:04→14:35)
[2017-08-22] MEDS: LORAZEPAM 1 MG TABLET PO PRN ×3 (08:04→22:54)
[2017-08-22 08:07] LABS: HEPATITIS B SURFACE AG Negative (Negative)
[2017-08-22] MEDS ORDERED: BUPRENORPHINE HCL 2 MG TAB.SUBL SL SCH (09:00)
--- NOTE | 2017-08-22 09:01 | NUR ---
Re-assessment; Patient is AOX4. Patient appears calm and comfortable at this time. PRN medication noted to be effective.
[2017-08-22 12:00] VITALS: BP 129/77
[2017-08-22] MEDS ORDERED: KETOROLAC TROMETHAMINE 30 MG INJ IM PRN (13:30)
[2017-08-22] MEDS: BUPRENORPHINE HCL 2 MG TAB.SUBL SL SCH ×2 (14:36→21:34)
--- NOTE | 2017-08-22 14:36 | NUR ---
PRN medication; Patient is very anxious and agitated, unable to sit still with current COWS score of 12. PRN Ativan 2mg PO given for s/s of withdrawals and agitation. Will continue to monitor patient.
--- NOTE | 2017-08-22 15:36 | NUR ---
Re-assessment; Patient is AOX4. Patient is calm and comfortable at this time. PRN medication is effective.
[2017-08-22 16:00] VITALS: BP 128/84
[2017-08-22] MEDS: MIRALAX 17 GM POWD.PACK PO PRN (18:12)
--- NOTE | 2017-08-22 18:14 | NUR ---
PRN medication; Patient is complaining of constipation, PRN Miralax 17 GM given to prevent further constipation. Will endorse to night nurse to monitor effectiveness.
--- NOTE | 2017-08-22 18:52 | NUR ---
End of shift note; Patient is AOX4, complaining anxiety, muscle aches, diaphoresis and constipation. . Patient remained compliant with treatment plan and medication regime. Medications were effective in reducing withdrawal symptoms. Patient participated in group activities and therapies. All safety measures secured. Met all needs.
--- NOTE | 2017-08-22 19:15 | NUR ---
Start of shift note Received report from day shift nurse. Pt is a 22 yo male, A+Ox4, presenting to [facility] for Opiate/cocaine withdrawal. Pt noted with restlessness, anxiety, and agitation. Respirations even and unlabored. Pt is on 5 day Subutex taper, tolerated well. Respirations even and unlabored. Will continue to monitor.
[2017-08-22 20:21] VITALS: BP 131/71
[2017-08-22] MEDS: QUETIAPINE FUMARATE 200 MG TABLET PO SCH (21:00)
[2017-08-22] MEDS ORDERED: GABAPENTIN 300 MG CAPSULE PO SCH (21:00)
[2017-08-22] MEDS: CLONIDINE HCL 0.1 MG TABLET PO SCH (21:33)
--- NOTE | 2017-08-22 22:54 | NUR ---
PRN Ativan 2mg and Colace Pt c/o anxiety and constipation and requested for PRN Ativan and Colace. Medications given and tolerated well. Will reassess within 1 HR. Will continue to monitor.
--- NOTE | 2017-08-22 23:50 | NUR ---
PRN Ativan 2mg and Colace Reassessment PRN Ativan effective. Pt expresses reduction in anxiety. Awaiting effectiveness of Colace. No s/s of ASE noted at this time. Respirations even and unlabored. Will continue to monitor.
[2017-08-23 00:25] VITALS: BP 127/74
[2017-08-23] MEDS: METHOCARBAMOL 750 MG TABLET PO PRN (02:30)
--- NOTE | 2017-08-23 02:30 | NUR ---
PRN Robaxin Pt c/o muscle pain 02/08 and requested for PRN Robaxin. Medication given and tolerated well. Will reassess within 1 HR. Will continue to monitor.
--- NOTE | 2017-08-23 03:28 | NUR ---
PRN Robaxin Reassessment Medication effective. Pt expresses reduction in muscle pain to 4/10. No s/s of ASE noted at this time. Respirations even and unlabored. Will continue to monitor.
[2017-08-23 04:33] VITALS: BP 125/71
--- NOTE | 2017-08-23 07:00 | NUR ---
End of shift note Pt continuously noted restlessness, anxiety, and agitation throughout shift. Pt was out of room frequently to go smoke on patio and to get food from kitchen during shift. Pt was given PRN Ativan 2mg for anxiety and Colace for c/o constipation @ 2254. Pt was also given PRN Robaxin for muscle pain @0230. Pt slept for a total of 4 HRS. Last COWS: 8 @0400. V/S WNL throughout shift. Respirations even and unlabored. Will endorse to day shift nurse.
--- NOTE | 2017-08-23 07:30 | NUR ---
START OF SHIFT Pt 22 y/o male admitted for heroin detoxification. Pt received in room on bed with eyes closed resting but easily arousable to name. Pt alert and oriented to name, place, and time. Perrla. Skin warm and moist to touch. Respirations even and unlabored. Bilateral hand tremors noted. Open empty bottles scattered throughout room. Pt appears disheveled with hair uncombed. It reported that pt slept for 4 hours last night. [place]=8 [place] [address]. Bed on lowest position with side rails x2 up for safety. Call light within reach.
[2017-08-23 08:00] VITALS: BP 120/73
[2017-08-23] MEDS: GABAPENTIN 300 MG CAPSULE PO SCH ×3 (09:04→20:47)
[2017-08-23] MEDS: CLONIDINE HCL 0.1 MG TABLET PO SCH ×2 (09:04→20:48)
[2017-08-23] MEDS: BUPRENORPHINE HCL 2 MG TAB.SUBL SL SCH ×3 (09:04→20:48)
[2017-08-23] MEDS: MIRALAX 17 GM POWD.PACK PO PRN (10:37)
--- NOTE | 2017-08-23 10:42 | NUR ---
PRN Pt states is constipated. Miralax solution mix prn per MD order given and tolerated well.
--- NOTE | 2017-08-23 10:42 | NUR ---
Therapist prompted client about group times. Client stated he would attend all groups today.
[2017-08-23] MEDS ORDERED: BISACODYL 5 MG TABLET.DR PO PRN (11:30)
[2017-08-23] MEDS ORDERED: BISACODYL 10 MG SUPP.RECT RC PRN (11:30)
--- NOTE | 2017-08-23 11:42 | NUR ---
PRN EVAL Pt states had a very small BM. Not effective. Pt states will try the dulcolax supp prn per MD order later today.
[2017-08-23 12:00] VITALS: BP 111/58
--- NOTE | 2017-08-23 13:29 | NUR ---
PRN Pt states is still constipated. Dulcolax supp prn per MD order given and tolerated well.
--- NOTE | 2017-08-23 14:29 | NUR ---
PRRadha PATEL Pt stated had a BM.
[2017-08-23] MEDS: QUETIAPINE FUMARATE 25 MG TABLET PO PRN (15:49)
--- NOTE | 2017-08-23 15:50 | NUR ---
PRN Pt agitated. Seroquel po prn per MD order given and tolerated well.
[2017-08-23 16:00] VITALS: BP 121/69
--- NOTE | 2017-08-23 16:50 | NUR ---
ORIN PATEL Pt observed in room on bed watching television.
[2017-08-23] MEDS ORDERED: SHARK LIVER OIL/PETROLAT OINT 60 GM TUBE RC ONE (18:45)
[2017-08-23] MEDS ORDERED: PHENYLEPHRINE/SHARK LIVER/CCB 1 EACH SUPP.RECT RC PRN (18:45)
--- NOTE | 2017-08-23 19:17 | NUR ---
PRN pt c/o hemorrhoids. Prep H prn per MD order given and tolerated well.
--- NOTE | 2017-08-23 19:32 | NUR ---
END OF SHIFT Pt 22 y/o admitted for heroin detoxification. Pt alert and oriented to name, place, and time. Perrla. Skin warm and moist to touch. Respirations even and unlabored. Bilateral hand tremors noted. Pt appears disheveled with hair uncombed. Dirty clothes scattered throughout the floor. Pt with periods of anxiety this morning. A few empty bottles of water scattered throughout the bedside shelf. Pt mostly observed in recreational room throughout the day. Pt attended group activity. Pt with cows=8@0800, 10 @1200, and 9@1600. Pt was seen by MD today. Pt medication compliant and tolerated well. No ASE noted. Pt is currently on 5 day Subutex taper and is on day 3. Pt was given miralax oral solution mix prn per MD order given. Pt was given Dulcolax supp prn per MD order given. Bed on lowest position with side rails x2 up for safety. Call light within reach.
--- NOTE | 2017-08-23 19:33 | NUR ---
Start of shift note Received report from day shift nurse. Pt is a 22 yo male, A+Ox4, presenting to [facility] for Opiate/cocaine withdrawal. Pt noted with anxiety, agitation, restlessness, and c/o constipation. Pt is on 5 day Subutex taper, tolerated well. Respirations even and unlabored. Will continue to monitor.
[2017-08-23] MEDS ORDERED: MAGNESIUM CITRATE 296 ML BOTTLE PO PRN (20:15)
[2017-08-23 20:31] VITALS: BP 157/74
--- NOTE | 2017-08-23 20:49 | NUR ---
PRN Magnesium Citrate Pt c/o persistent constipation and requested for Magnesium Citrate. Medication given and tolerated well. Will reassess within 1 HR. Will continue to monitor.
--- NOTE | 2017-08-23 21:45 | NUR ---
PRN Magnesium Citrate Reassessment Awaiting effectiveness of medication. No s/s of ASE noted at this time. Respirations even and unlabored. Will continue to monitor.
[2017-08-23] MEDS: QUETIAPINE FUMARATE 200 MG TABLET PO SCH (22:11)
[2017-08-24 00:07] VITALS: BP 142/78
[2017-08-24 04:22] VITALS: BP 138/77
--- NOTE | 2017-08-24 06:50 | NUR ---
End of shift note Pt continuously noted with anxiety, agitation, restlessness, and complaints of constipation. Pt was given PRN Magnesium citrate @2048 but still no BM noted. Pt was out of room frequently to get food from kitchen, go smoke on smoking patio, and interacting with other patients in recreational room. Pt slept for a total of 8 HRS. Last COWS: 8 @0400. V/S WNL during shift. Respirations even and unlabored. Will endorse to day shift nurse.
--- NOTE | 2017-08-24 07:30 | NUR ---
START OF SHIFT Pt 22 y/o male admitted for heroin detoxification. Pt received in room on bed with eyes closed resting but easily arousable to name. Pt alert and oriented to name, place, and time. Perrla. Skin warm and moist to touch. Respirations even and unlabored. Bilateral hand tremors noted. Open empty bottles scattered throughout room. Observed clothes scattered throughout the floor in room. Pt appears disheveled with hair uncombed. It reported that pt slept for 6 hours last night. Last cows=8 reported at 0400. Pt is on a 5 day subutex taper and is on day 5. Bed on lowest position with side rails x2 up for safety. Call light within reach.
[2017-08-24 08:00] VITALS: BP 106/61
[2017-08-24] MEDS ORDERED: BUPRENORPHINE HCL 2 MG TAB.SUBL SL SCH (09:00)
[2017-08-24] MEDS: GABAPENTIN 300 MG CAPSULE PO SCH ×3 (09:25→22:58)
[2017-08-24] MEDS: QUETIAPINE FUMARATE 25 MG TABLET PO PRN ×2 (09:25→14:21)
[2017-08-24] MEDS: CLONIDINE HCL 0.1 MG TABLET PO SCH ×2 (09:25→22:58)
[2017-08-24 12:00] VITALS: BP 110/64
--- NOTE | 2017-08-24 14:25 | NUR ---
PRN Pt agitated and restless. Seroquel po prn per MD order given and tolerated well.
--- NOTE | 2017-08-24 14:27 | NUR ---
PRN Pt stated had another loose stool x1. Immodium po prn per MD order given and tolerated well.
[2017-08-24] MEDS ORDERED: IBUP-1955 PO (14:58)
[2017-08-24] MEDS ORDERED: HYDR-3895 PO (14:58)
[2017-08-24] MEDS ORDERED: DICY20TA28 PO (14:58)
[2017-08-24] MEDS ORDERED: CLON0.1T14 PO (14:58)
[2017-08-24] MEDS ORDERED: METH-406 PO (14:58)
[2017-08-24] MEDS ORDERED: QUET200T PO (14:58)
[2017-08-24] MEDS ORDERED: GABA-534 PO (14:58)
--- NOTE | 2017-08-24 15:25 | NUR ---
ORIN PATEL Pt observed walking around in the hallways with other clients.
[2017-08-24] MEDS: HYDROXYZINE PAMOATE 25 MG CAPSULE PO PRN (15:30)
--- NOTE | 2017-08-24 15:31 | NUR ---
PRN Pt states feels anxious. Vistaril po prn per MD order given and tolerated well.
[2017-08-24 16:00] VITALS: BP 124/68
--- NOTE | 2017-08-24 16:31 | NUR ---
ORIN PATEL Pt observed in room on bed watching television.
--- NOTE | 2017-08-24 17:07 | NUR ---
Therapist prompted client to attend daily group session. Client responded by stating that he would attend if she was feeling well enough to go.
--- NOTE | 2017-08-24 18:32 | NUR ---
END OF SHIFT Pt 22 y/o admitted for heroin detoxification. Pt alert and oriented to name, place, and time. Perrla. Skin warm and moist to touch. Respirations even and unlabored. Bilateral hand tremors noted. Pt with periods of anxiety this morning. Pt mostly observed walking around the hallways. Pt attended group activity. Pt with cows=9@0800, 7@1200, and 5@1600. Pt was seen by MD today. Pt medication compliant and tolerated well. No ASE noted. Pt is currently on 5 day Subutex taper and is on day 4. Pt was given immodium po per MD order given. Pt was given Seroquel po prn per MD order today and Vistaril po prn per MD order. Bed on lowest position with side rails x2 up for safety. Call light within reach.
--- NOTE | 2017-08-24 19:15 | NUR ---
Start of shift note Received report from day shift nurse. Pt is a 22 yo male, A+Ox4, presenting to [facility] for Opiate/cocaine withdrawal. Pt noted with anxiety, agitation and restlessness. Pt's room is messy and disorganized. Pt has completed 4 day Subutex taper and is due for discharge tomorrow. Respirations even and unlabored. Will continue to monitor.
--- NOTE | 2017-08-24 19:57 | NUR ---
PRN Tylenol Pt noted with temp= 100.8F. PRN Tylenol given and tolerated well. Will reassess within 1 HR. Will continue to monitor.
[2017-08-24 20:01] VITALS: BP 130/71
--- NOTE | 2017-08-24 20:50 | NUR ---
PRN Tylenol Reassessment Medication effective. Pt's temp= 99.0F. No S/S of ASE noted at this time. Respirations even and unlabored. Will continue to monitor.
[2017-08-24] MEDS: QUETIAPINE FUMARATE 200 MG TABLET PO SCH (22:58)
[2017-08-25 00:31] VITALS: BP 124/74
[2017-08-25 04:07] VITALS: BP 126/77
--- NOTE | 2017-08-25 06:54 | NUR ---
End of shift note Pt continuously noted with anxiety, agitation, and messy room. Pt has completed 4 day Subutex taper, tolerated well, and is due for discharge today. Pt was given PRN Tylenol for temperature = 100.8F @1957. Medication was effective for reducing fever. After Tylenol administration patients V/S were WNL during rest of shift. Pt slept for a total of 7 HRS. Last COWS: 7 @0400. Respirations even and unlabored. Will endorse to day shift nurse.
--- NOTE | 2017-08-25 07:15 | NUR ---
START OF SHIFT PATIENT HAS COMPLETED HIS 4 DAY SUBUTEX TAPER FOR WITHDRAWAL FROM HEROIN AND IS TO BE DISCHARGED TODAY. PATIENT ASLEEP IN BED AT THIS TIME, SIDE RAILS UP X 2 BREATHING EVEN AND UNLABORED. PRN MEDICATION REQUESTED / REQUIRED LAST NIGHT : TYLENOL 650MG PO FOR A TEMPERATURE OF 100.8 WHICH DECREASED TO 99 AFTER ADMINISTRATION OF TYLENOL. LAST COWS 7 @ 0400, PATIENT SLEPT FOR 7 HOURS LAST NIGHT. WILL FOLLOW MD DISCHARGE INSTRUCTIONS
[2017-08-25 08:00] VITALS: BP 109/56
[2017-08-25] MEDS: GABAPENTIN 300 MG CAPSULE PO SCH (08:40)
[2017-08-25] MEDS: HYDROXYZINE PAMOATE 25 MG CAPSULE PO PRN (08:40)
[2017-08-25] MEDS: METHOCARBAMOL 750 MG TABLET PO PRN (08:41)
--- NOTE | 2017-08-25 08:41 | NUR ---
PRN MEDS PRN ROBAXIN 750MG PO AND VISTARIL 25MG PO GIVEN FOR COMPLAINTS OF BODY ACHES 6/10 AND ANXIETY WILL CONTINUE TO MONITOR
[2017-08-25 08:42] VITALS: BP 109/56
[2017-08-25] MEDS: CLONIDINE HCL 0.1 MG TABLET PO SCH (08:42)
--- NOTE | 2017-08-25 09:41 | NUR ---
PRN REASSESS ROBAXIN AND VISTARIL EFFECTIVE PER PT REPORT, PT IS READY TO BE DISCHARGED HOME.
--- NOTE | 2017-08-25 09:45 | NUR ---
DISCHARGE NOTE PATIENT DISCHARGED FROM THE UNIT, ALL DC PAPERWORK SIGNED AND DATED, PRESCRIPTIONS GIVEN AND ALL BELONGINGS RETURNED TO PATIENT.VS STABLE BP 109/56, HR 74, RR 18 TEMP 98.1. PATIENT STATES NO HI/SI AT THIS TIME AND UNDERSTANDS DC INSTRUCTIONS . LAST COWS 6 AND CIWA 3@ 0800. PATIENT AMBULATED OFF THE UNIT AT 0945 AND WAS MET IN HOSPITAL LOBBY FOR TRANSPORT HOME.
== END 2017-08-25 09:45 | disposition home or self-care (01) | DRG 895 ==
LOC: SRC 14:21
PROVIDERS: ADMIT Internal Medicine; ATTEND Internal Medicine
PROC: HZ2ZZZZ Detoxification Services for Substance Abuse Treatment (ICD-10-PCS; principal; 2017-08-20)
PROC: HZ41ZZZ Group Counseling for Substance Abuse Treatment, Behavioral (ICD-10-PCS; 2017-08-21)
PROC: HZ31ZZZ Individual Counseling for Substance Abuse Treatment, Behavioral (ICD-10-PCS; 2017-08-23)
DX: F11.23 Opioid dependence with withdrawal (principal); I15.9 Secondary hypertension, unspecified; F12.90 Cannabis use, unspecified, uncomplicated; F14.21 Cocaine dependence, in remission; F17.210 Nicotine dependence, cigarettes, uncomplicated; G47.00 Insomnia, unspecified; K64.9 Unspecified hemorrhoids; Z91.89 Other specified personal risk factors, not elsewhere classified; Z81.1 Family history of alcohol abuse and dependence; Z79.899 Other long term (current) drug therapy; R73.9 Hyperglycemia, unspecified
CPT/HCPCS: 36415; 70030-TC; 80307; 83735; 85025; 86580; 86592; 86705; 86803; 87340; 87806; G0480